=== PATIENT | female | born 1985 | race Caucasian/White ===

== ENCOUNTER → 2020-05-05 11:58 | Outpatient (BNVA) | payer BC, SELFPAY | PROVIDERS: Family Provider Nurse Practitioner; PCP Nurse Practitioner; Visit Provider Nurse Practitioner Family | DX: R53.83 Other fatigue (principal); Z13.6 Encounter for screening for cardiovascular disorders; Z01.419 Encounter for gynecological examination (general) (routine) without abnormal findings | CPT/HCPCS: 80053; 80061; 82306; 82607; 84443; 85025; 88175 ==

== ENCOUNTER → 2021-04-07 17:45 | Outpatient (BNVA) | payer BC, SELFPAY | PROVIDERS: Family Provider Nurse Practitioner; PCP Nurse Practitioner Family; Visit Provider Nurse Practitioner Family | DX: N93.9 Abnormal uterine and vaginal bleeding, unspecified (principal); R53.83 Other fatigue; Z13.6 Encounter for screening for cardiovascular disorders; Z11.3 Encounter for screening for infections with a predominantly sexual mode of transmission; Z01.419 Encounter for gynecological examination (general) (routine) without abnormal findings; R03.0 Elevated blood-pressure reading, without diagnosis of hypertension | CPT/HCPCS: 80053; 80061; 82306; 82607; 83001; 83721; 84146; 84439; 84443; 85025; 86592; 87491; 87530; 87591; 87661; 87806 ==